=== PATIENT | female | born 1960 | race Caucasian/White ===

== ENCOUNTER 2018-12-03 14:53 | Emergency (ER) | payer BC ==
[~2018-12-03] VITALS: Ht 157.5 cm; Wt 57.6 kg
[2018-12-03 14:54] VITALS: BP 119/80; PULSE 108; RESP 20; Ht 157.5 cm; Wt 57.6 kg
--- NOTE | 2018-12-03 15:20 | ERD ---
ER Documentation Chief Complaint Chief Complaint BACK PAIN RADIATING TO HEAD, SHOULDERS AND LOWER BACK HPI 58-year-old female, with history of chronic back pain, presents to the emergency department, complaining of acute exacerbation upper back pain radiating to the head and shoulders. The pain is described as sharp, constant, 6/10. Patient denies fever, no chills, no distal weakness, numbness or tingling. ROS All systems reviewed and are negative except as per history of present illness. Medications Home Meds Active Scripts Lorazepam* (Ativan*) 0.5 Mg Tablet, 0.5 MG PO QHS PRN for MUSCLE SPASMS, #10 TAB Prov:EDGARD LÓPEZ MD 12/03/18 Hydrocodone/Acetaminophen ([place] 5-325 Tablet) 1 Each Tablet, 1 TAB PO BID PRN for PAIN, #10 TAB Prov:EDGARD LÓPEZ MD 12/03/18 Allergies Allergies: Coded Allergies: sulfamethoxazole (Verified Allergy, Intermediate, RASH, 12/03/18) trimethoprim (Verified Allergy, Intermediate, RASH, 12/03/18) PMhx/Soc Chronic back pain Medical and Surgical Hx: pt denies Surgical Hx Smoking Status: Never smoker FmHx Family History: No diabetes, No coronary disease Physical Exam Vitals Vital Signs Date Temp Pulse Resp B/P (MAP) Pulse Ox O2 O2 Flow FiO2 Time Delivery Rate 12/03/18 99.4 108 20 119/80 97 14:54 (93) Physical Exam Patient is in no acute distress, vital signs stable. Alert and fully oriented. EYES: PERRLA, EOMI, Sclera and conjunctiva appear normal. EARS: Canals clear, tympanic membranes WNL THROAT: Normal oropharynx. NECK: Supple, No lymphadenopathy. Full ROM without pain or tenderness. HEART: RRR, no rubs, murmurs, clicks or gallops. LUNGS: Clear to auscultation. ABDOMEN: Soft, non-tender without masses or hepatosplenomegaly. EXTREMITIES: No edema bilaterally. BACK: Normal inspection, no bruises, no rashes, no deformity, decreased range of motion for lateral rotation and flexion. No vertebral tenderness, bilateral upper muscle spasm. NEURO: Cranial nerves grossly intact, no motor or sensory deficit Results 24 hrs Laboratory Tests Test 12/03/18 16:06 Urine Color YELLOW Urine Clarity CLEAR Urine pH 6.0 Urine Specific [place] 1.021 Urine Ketones TRACE mg/dL Urine Nitrite NEGATIVE mg/dL Urine Bilirubin NEGATIVE mg/dL Urine Urobilinogen NEGATIVE mg/dL Urine Leukocyte Esterase NEGATIVE Lay/ul Urine Hemoglobin NEGATIVE mg/dL Urine Glucose NEGATIVE mg/dL Urine Total Protein NEGATIVE mg/dl Current Medications Medications Dose Sig/Marcin Start Time Status Last (Trade) Ordered Route PRN Stop Time Admin Dose Reason Admin Ketorolac 15 mg ONCE STAT 12/03/18 DC 12/03/18 Tromethamine IM 15:43 16:05 (Toradol) 12/03/18 15:45 Procedures/MDM At the time of discharge, patient nontoxic, ambulating, vital signs stable, no gross neurologic deficit. differential diagnosis include but not limited to: lumbar sprain/strain, sciatica, herniated disk, UTI less likely pyelo, kidney stone. Neurovascular exam grossly intact. no clinical findings suggestive of acute infectious process, no acute deformity, no edema, no rashes. Physical examination and clinical presentation consistent most likely with acute on chronic back pain. Results and clinical impression discussed with the patient who agrees with management. The patient is stable to be treated outpatient and will be discharged home with recommendations and close monitoring The patient was informed that the evaluation in the emergency department has been done to rule out an acute emergency, therefore, chronic conditions like malignancy or autoimmune diseases have not been evaluated; therefore, the patient was instructed to follow up with the primary care provider in the next 48h. If symptoms persist, worsen or new symptoms develop, then patient should return to the ED immediately. Instructions explained and given to patient with acknowledgment and demonstrated understanding. Disclaimer: Inadvertent spelling and grammatical errors are likely due to EHR/dictation software use and do not reflect on the overall quality of patient care. Also, please note that the electronic time recorded on this note does not necessarily reflect the actual time of the patient encounter. Departure Diagnosis: Primary Impression: Chronic back pain Condition: Stable Patient Instructions: Back Pain (Acute Or Chronic) Additional Instructions: Thank you very much for allowing us to participate in your care. Your health and safety is our top priority at [facility]. Call your primary care doctor TOMORROW for an appointment during the next 2-4 days and bring all the information and medications prescribed. Have prescriptions filled and follow precisely the directions on the label. If the symptoms get worse and your provider is unavailable, return to the Emergency Department immediately. EDGARD LÓPEZ MD Dec 03, 2018 15:20
[2018-12-03] MEDS ORDERED: KETOROLAC 15 MG INJ IM STA (15:43)
[2018-12-03] MEDS ORDERED: HYDR-4011 PO (16:36)
[2018-12-03] MEDS ORDERED: LORA-441 PO (16:36)
== END 2018-12-03 16:49 | disposition home or self-care (01) ==
LOC: FTE 14:53
DX: M54.5 Low back pain (principal)
CPT/HCPCS: 81003; 96372; J1885; Z7502

== ENCOUNTER 2019-03-05 14:18 | Emergency (ER) | payer BC ==
[~2019-03-05] VITALS: Ht 157.5 cm; Wt 55.8 kg
[~2019-03-05 14:18] MED LIST: HYDR-4011 PO; LORA-441 PO
[2019-03-05 14:30] VITALS: Ht 157.5 cm; Wt 55.8 kg
[2019-03-05] MEDS ORDERED: morphine 4 MG/ML VIAL IV STA (15:16)
--- NOTE | 2019-03-05 17:32 | ERD ---
ER Documentation Chief Complaint Chief Complaint BILATERAL LEG PAIN. NO SWELLING/REDNESS HPI 58-year-old female presented to ED for low back pain numbness tingling in her lower extremities and urinary incontinence x4 days. Patient states that back in November she was diagnosed with spinal stenosis. Patient has been seeing a neurologist and plans to have surgery. Patient is presenting to the ED because symptoms worsened at this week. Patient states that before she did not have urinary symptoms or numbness tingling in her lower extremities. Patient is able to ambulate but states it is painful. Patient denies any allergies to medications. Patient states the pain is a 10 out of 10 and has not been medication since early this morning. ROS All systems reviewed and are negative except as per history of present illness. Medications Home Meds Active Scripts Cephalexin* (Keflex*) 500 Mg Capsule, 500 MG PO TID for 5 Days, CAP Prov:MARILUZ FISCHER PA-C 03/05/19 Methylprednisolone* (Medrol* DOSE PACK) 4 Mg/Dose-Pack Tab.ds.pk, 4 MG PO . DIRECTED for 7 Days, PACKET Prov:TRINA ALLEN PA-C 03/05/19 Hydrocodone/Acetaminophen (Lind[place] 5-325 Tablet) 1 Each Tablet, 1 TAB PO Q6H PRN for PAIN, #7 TAB Prov:TRINA ALLEN PA-C 03/05/19 Lorazepam* (Ativan*) 0.5 Mg Tablet, 0.5 MG PO QHS PRN for MUSCLE SPASMS, #10 TAB Prov:EDGARD LÓPEZ MD 12/03/18 Hydrocodone/Acetaminophen (Linden 5-325 Tablet) 1 Each Tablet, 1 TAB PO BID PRN for PAIN, #10 TAB Prov:EDGARD LÓPEZ MD 12/03/18 Allergies Allergies: Coded Allergies: sulfamethoxazole (Verified Allergy, Intermediate, RASH, 12/03/18) trimethoprim (Verified Allergy, Intermediate, RASH, 12/03/18) PMhx/Soc History of Surgery: Yes (TA) Anesthesia Reaction: No Hx Miscellaneous Medical Probl: Yes (chronic back pain) Hx Alcohol Use: No Hx Substance Use: No Hx Tobacco Use: No Smoking Status: Never smoker FmHx Family History: No diabetes, No coronary disease, No other Physical Exam Vitals Vital Signs Date Temp Pulse Resp B/P (MAP) Pulse Ox O2 O2 Flow FiO2 Time Delivery Rate 03/06/19 97.8 61 17 130/81 98 Room Air 00:25 (97) 03/05/19 97.7 91 20 148/81 98 14:30 (103) Physical Exam Const: Moderate distress Neck: Full range of motion. No meningismus. Resp: Clear to auscultation bilaterally Cardio: Regular rate and rhythm, no murmurs Abd: Soft, non tender, non distended. Normal bowel sounds Skin: No petechiae or rashes Back: Pain and tenderness to palpation in the lumbar region Ext: No cyanosis, or edema, patient has decreased sensation anterior aspect the lower extremities, patient has lack of range of motion lower extremities, patient has good pedal pulses bilateral lower extremities. Result Diagram: 03/05/19 1533 03/05/19 1533 Results 24 hrs Laboratory Tests Test 03/05/19 15:33 White Blood Count 7.6 10^3/ul Red Blood Count 4.66 10^6/ul Hemoglobin 13.5 g/dl Hematocrit 40.1 % Mean Corpuscular Volume 86.1 fl Mean Corpuscular Hemoglobin 29.0 pg Mean Corpuscular Hemoglobin Concent 33.7 g/dl Red Cell Distribution Width 12.3 % Platelet Count 307 10^3/UL Mean Platelet Volume 10.3 fl Immature Granulocytes % 0.300 % Neutrophils % 61.2 % Lymphocytes % 32.1 % Monocytes % 5.0 % Eosinophils % 0.9 % Basophils % 0.5 % Nucleated Red Blood Cells % 0.0 /100WBC Immature Granulocytes # 0.020 10^3/ul Neutrophils # 4.7 10^3/ul Lymphocytes # 2.5 10^3/ul Monocytes # 0.4 10^3/ul Eosinophils # 0.1 10^3/ul Basophils # 0.0 10^3/ul Nucleated Red Blood Cells # 0.0 10^3/ul Urine Color YELLOW Urine Clarity SLIGHTLY CLOUDY Urine pH 8.0 Urine Specific [place] 1.017 Urine Ketones TRACE mg/dL Urine Nitrite NEGATIVE mg/dL Urine Bilirubin NEGATIVE mg/dL Urine Urobilinogen NEGATIVE mg/dL Urine Leukocyte Esterase 1+ Lay/ul Urine Microscopic RBC 1 /HPF Urine Microscopic WBC 13 /HPF Urine Squamous Epithelial Cells FEW /HPF Urine Bacteria FEW /HPF Urine Mucus FEW /HPF Urine Hemoglobin NEGATIVE mg/dL Urine Glucose NEGATIVE mg/dL Urine Total Protein NEGATIVE mg/dl Sodium Level 143 mmol/L Potassium Level 4.0 mmol/L Chloride Level 105 mmol/L Carbon Dioxide Level 29 mmol/L Anion Gap 9 Blood Urea Nitrogen 14 mg/dl Creatinine 0.72 mg/dl Est Glomerular Filtrat Rate mL/min > 60 mL/min Glucose Level 121 mg/dl Calcium Level 10.1 mg/dl Current Medications Medications Dose Sig/Marcin Start Time Status Last (Trade) Ordered Route PRN Stop Time Admin Dose Reason Admin Morphine 4 mg ONCE STAT 03/05/19 DC 03/05/19 Sulfate IV 15:16 15:51 (morphine) 03/05/19 15:19 Procedures/MDM ED course: The patient was stable throughout the ED course. The patient and/or family informed of laboratory and diagnostic imaging results throughout the ED course. Diagnostic imaging: Read by radiologist mariluz Valdovinos, Physicia PROCEDURE: MRI lumbar spine CLINICAL INDICATION: Severe low back pain TECHNIQUE: Multiplanar, multisequence MRI of the lumbar spine was performed without and with IV contrast. CONTRAST: 10 mL Prohance IV COMPARISON: None FINDINGS: Alignment: Unremarkable. Marrow: Prominent Schmorl's node seen at the L1 inferior endplate with mild surrounding fibrovascular degenerative signal changes. Background bone marrow signal is heterogeneous. Mild edema and enhancement is seen to the L3-L4 facet joints bilaterally, likely degenerative. Conus: The conus terminates normally at the L1-L2 level. The distal spinal cord is unremarkable. No abnormal enhancement. T11-T12: Mild diffuse disc bulge. No spinal canal or foraminal narrowing. T12 - L1: Mild diffuse disc bulge. No spinal canal or foraminal narrowing. L1 - L2: Diffuse disc bulge. No spinal canal or foraminal narrowing. L2 - L3: Mild diffuse disc bulge. No spinal canal or foraminal narrowing. L3 - L4: Diffuse disc bulge with ligamentum flavum redundancy and bilateral facet arthrosis. Prominent dorsal epidural fat noted. There is narrowing of the lateral recesses, left greater than right. No spinal canal narrowing. Mild bilateral foraminal narrowing. L4 - L5: Diffuse disc bulge with a small superimposed central disc protrusion. Mild facet arthrosis. No spinal canal narrowing. Moderate bilateral foraminal narrowing. L5 - S1: Diffuse disc bulge with a superimposed central disc extrusion, 3 mm inferior migration. There is contact of the descending right S1 nerve root in the lateral recess. No spinal canal narrowing. No foraminal narrowing. Paraspinal soft tissues: Unremarkable IMPRESSION: Multilevel degenerative changes of the lumbar spine. There is moderate foraminal narrowing bilaterally at the L4-5 level. Small disc extrusion at the L5-S1 level contacts the descending right S1 nerve root in the lateral recess. Medications given in ER: IV morphine Patient tolerated medication well with no adverse reactions. Patient reported improvement in pain. Medical decision makin-year-old female presenting to the ED for numbness tingling extending into the anterior aspect of her lower extremity and urinary incontinence x4 days. Patient states she has a history of spinal stenosis and was diagnosed back in November of this year. Patient is under the care of a neurosurgeon who still has not scheduled the surgery for her. Patient has been receiving physical therapy but states that has not been helping. Patient's lower lumbar MRI ruled out cauda equine syndrome and spinal abscess. The patient states she has been having urinary incontinence, but was able to provide a urine sample without difficulty. The patients WBC showed no signs of leukocytosis. The patient UA indicated the patient has a UTI. The patient will be treated out patient with Keflex. The patient was reevaluated for pain 4 hours after the first dose of Morphine was given. Patient states she is pain free at the moment and is resting comfortably. At this time I have low suspicion for cauda equine syndrome, spinal fractures, epidural abscess, spinal metastases, osteomyelitis, aortic dissection, ruptured or leaking AA. The lab and imaging results were discussed with the patient. I advised the patient she will be given prescription for Motrin,Linden and Medrol dose pack for relief of symptoms. Patient was advised to follow up with her PCP and her neurosurgeon CHINO regarding this visit. Patient was advised that if symptoms worsen she should return to the ER immediately. Patient is an agreement to the treatment plan and all questions were answered upon discharge. Prescription for home: Medrol Dose pack Keflex Motrin Linden I have discussed with the patient proper use and common side effects to expert with the medication . I advised the patient/family to speak with the pharmacist dispensing the medication to be advised of any potential drug interactions with other medication or supplements they may be taking. Discharge: At this time, patient is stable for discharge and outpatient management. I have instructed the patient to follow-up with his\her primary care physician in 1 to 2 days. I have discussed with the patient the possibility of needing to see a specialist for further work-up and imaging studies if symptoms persist. I have instructed the patient to promptly return to the ER for any new or worsening symptoms including increased pain, fever, nausea, vomiting, weakness or LOC. The patient and\or family expressed understanding of and agreement with this plan. All questions were answered. Home care instructions were provided. Disclaimer: Inadvertent spelling and grammatical errors are likely due to EHR\dictation software use and do not reflect on the overall quality of patient care. Also, please note that the electronic time recorded on the note does not necessarily reflect the actual time of the patient encounter. MRI results : Multilevel degenerative changes of the lumbar spine. There is moderate foraminal narrowing bilaterally at the L4-5 level. Small disc extrusion at the L5-S1 level contacts the descending right S1 nerve root in the lateral recess. Departure Diagnosis: Primary Impression: Spinal stenosis Spinal region: lumbar Neurogenic claudication status: unspecified Qualified Codes: M48.061 - Spinal stenosis, lumbar region without neurogenic claudication Additional Impressions: Urinary incontinence Urinary Incontinence type: unspecified incontinence Qualified Codes: R32 - Unspecified urinary incontinence Bilateral leg paresthesia Condition: TRINA Berg PA-C Mar 05, 2019 17:31 MARILUZ FISCHER PA-C Mar 06, 2019 00:01
[2019-03-05] MEDS ORDERED: MED4DP PO (18:52)
[2019-03-05] MEDS ORDERED: HYDR-4011 PO (18:52)
[2019-03-05] MEDS ORDERED: CEPH-443 PO (22:32)
[2019-03-06 00:25] VITALS: BP 130/81; PULSE 61; RESP 17
== END 2019-03-06 00:18 | disposition home or self-care (01) ==
LOC: FTE 14:18
DX: M48.061 Spinal stenosis, lumbar region without neurogenic claudication (principal); R32 Unspecified urinary incontinence; R20.2 Paresthesia of skin
CPT/HCPCS: 72158; 80048; 81001; 85025; 96374; J2270; Z7502

== ENCOUNTER 2019-03-29 10:58 | Emergency (ER) | payer BC ==
[~2019-03-29] VITALS: Ht 152.4 cm; Wt 55.3 kg
[~2019-03-29 10:58] MED LIST changes: +ACET500C5 PO; +CEPH-443 PO; +IBUP-1542 PO; +MED4DP PO
[2019-03-29 11:00] VITALS: Ht 152.4 cm; Wt 55.3 kg
--- OUTSIDE RECORDS SUMMARY | 2019-03-29 11:24 | XMS REPORT | Encounter Summary ---
Demographics [phone] ion n X1 weeks pt was taking norco and ibuprofen but not helping. Assessment and Plan ing please go to emergency room to be evaluated by neurosurgery due to red flag symptoms Patient educational handouts: No information available. Plan of Care Patient Instructions vnjvq6Jx Uiwdwtg1u kfhqMpmieus9m l rosurgery rral Medications Tuvxsrq6Kt Bulaoyu0q Vbhwlag7d Zgyklce6n [place] 3 times a day by oral route. route. Medications Administered None recorded. Vitals Kqwmqov1Kc Bpmhhhi9e d Pressure Nchvboe2g Lab Results None recorded. Allergies Ahsahlp5Fh Nuospck9Yv Idhleku7Uc Stflpde7Zh Jmbzehc7U Rdarykl2P Shona na4d zkhwmr3c Cxxmfjj2q cdekt6t na4d Problems Xzbkjya4Qu Zxvoypn4Ai dana4d tatusVerdana4 Onset SourceVerdana Pxetodx6i d DateVerdana4 4d d Procedures Rpznqoa4Ak Cnrvvvo8r Thpuhsp6i Xpodfvv2q Xrinitp4a stacey Vaccine List None recorded. Social History g Family History Umstbuu9Zc Wdyddgk8Uv roblem Onset Age of Age Notes Nnlgkev3s Ozamzsz4x Mevyahd1p Nnjifpf4n Jvmklpy7y rmation) Functional Status Unknown. Past Encounters tom Alonzo, [employer] BACK [employer]ER: [address] [facility], [place] [address], Ph. History of Present Illness Note:<p>58 year old reporting excruciating 10/10 lower back pain, radiating to her legs, x1 year, got an MRI in November 2018- unsure if she was told she had compression syndrome. states she has been doing physical therapy, taking norco and ibuprofen with very minimal relief of symptoms. reporting saddle anesthesia, progessive difficulty walking, and urinary incontinence for the past week. also reporting numbness, tingling, and lower extremities turning blue. denies any other symptoms.</p> Review of Systems nt Care Trauma ROS o chest tightness, normal respiration in: mptoms: Physical Exam skeletal and Joint Exam ete with age, no tenderness, no spasms. Thoracic Spine reduced ROM, tenderness on palpation. Lumbar / Lumbosacral Spine tenderness on palpation, reduced ROM. Soft Tissue/Bursa: tender point onon paralumbar region, tender point on upper/outer buttocks
--- OUTSIDE RECORDS SUMMARY | 2019-03-29 11:24 | XMS REPORT ---
Demographics [phone] ion Allergies Verdana4 Verdana4 Verdana4 Verdana4 Verdana4 Verdana Verdana Bd wdorcy8g onVerdana tyVerdana usVerdan tVerdana dana4d 4d 4d a4d 4d Medications Ikbjfiu4Az Onhlsdh8Su Raygknr6Gv Dxlxsrn4Kf Iyrisaj4T Xadyosx6V Ifpdyvk1z Wecfsoc5q Nsdttbj7v Aajrihf6o ntin 3 times a day by oral route. available tablet Take 1 tablet 3 times a day by oral route. available Problems Lsgehuq8Oe Ygjqzdj7Go dana4d tatusVerdana4 Onset SourceVerdana Gtynjfe9d d DateVerdana4 4d d Intervertebral Disc by Injection Procedures Mfjyogg0Eu Cesrdgi3x Hbkrsvj2m Ukiotzh2h Kxrsbuw4v stacey Lab Results None recorded. Past Encounters tom Alonzo, CERTIFIED RESIDENTIAL MEDICATION AIDE: [address] [facility], [place] [address], Ph. Social History Vaccine List None recorded. Plan of Care Patient Instructions gpwyz6Yn Ztbaxys8v vrsfDtuwbmu5v l Vitals Axefggh8Al Gwlwhkg2t d Pressure Oqgplvf6n
[2019-03-29] MEDS ORDERED: ONDANSETRON (ODT) 4 MG TAB ODT STA (11:26)
[2019-03-29] MEDS ORDERED: HYDROCODONE/APAP (10/325) TAB PO ONE (11:30)
[2019-03-29 12:48] VITALS: BP 126/83; PULSE 66; RESP 18
--- NOTE | 2019-03-29 16:38 | ERD ---
ER Documentation Chief Complaint Chief Complaint headache x 3 days , vomiting x 1 day HPI Patient's 58-year-old female presented to ED for unilateral headache on the right side x3 days. Patient states that she is vomited one time. Patient states this is never happened to her before. Patient states the pain is a 10 out of 10. Patient states her only past medical history is spinal stenosis which she takes Christoval for. Patient's vitals are all stable limit. Patient states that she has not taken anything for this headache is wants to get checked out. ROS All systems reviewed and are negative except as per history of present illness. Medications Home Meds Active Scripts Ibuprofen* (Motrin*) 600 Mg Tab, 600 MG PO Q6, #30 TAB Prov:TRINA ALLEN PA-C 03/29/19 Acetaminophen* (Tylophen*) 500 Mg Capsule, 1 CAP PO Q6H PRN for PAIN AND OR ELEVATED TEMP, #20 CAP Prov:TRINA ALLEN PA-C 03/29/19 Cephalexin* (Keflex*) 500 Mg Capsule, 500 MG PO TID for 5 Days, CAP Prov:MARILUZ FISCHER PA-C 03/05/19 Methylprednisolone* (Medrol* DOSE PACK) 4 Mg/Dose-Pack Tab.ds.pk, 4 MG PO . DIRECTED for 7 Days, PACKET Prov:TRINA ALLEN PA-C 03/05/19 Hydrocodone/Acetaminophen (Christoval 5-325 Tablet) 1 Each Tablet, 1 TAB PO Q6H PRN for PAIN, #7 TAB Prov:TRINA ALLEN PA-C 03/05/19 Lorazepam* (Ativan*) 0.5 Mg Tablet, 0.5 MG PO QHS PRN for MUSCLE SPASMS, #10 TAB Prov:EDGARD LÓPEZ MD 12/03/18 Hydrocodone/Acetaminophen (Christoval 5-325 Tablet) 1 Each Tablet, 1 TAB PO BID PRN for PAIN, #10 TAB Prov:EDGARD LÓPEZ MD 12/03/18 Allergies Allergies: Coded Allergies: sulfamethoxazole (Verified Allergy, Intermediate, RASH, 12/03/18) trimethoprim (Verified Allergy, Intermediate, RASH, 12/03/18) PMhx/Soc History of Surgery: Yes (TA) Anesthesia Reaction: No Hx Neurological Disorder: No Hx Respiratory Disorders: No Hx Cardiac Disorders: No Hx Psychiatric Problems: No Hx Miscellaneous Medical Probl: Yes (chronic back pain) Hx Alcohol Use: No Hx Substance Use: No Hx Tobacco Use: No Smoking Status: Never smoker FmHx Family History: No diabetes, No coronary disease, No other Physical Exam Vitals Vital Signs Date Temp Pulse Resp B/P (MAP) Pulse Ox O2 O2 Flow FiO2 Time Delivery Rate 03/29/19 98.2 66 18 126/83 98 Room Air 12:48 (97) 03/29/19 64 18 138/84 98 Room Air 12:25 (102) 03/29/19 98.6 81 18 165/74 99 11:00 (104) Physical Exam GENERAL: Moderate distress HEENT: Atraumatic. Conjunctivae are pink. Pupils equal, round, and reactive to light. There is no scleral icterus. Tympanic membranes clear bilaterally. Oropharynx clear. No nystagmus or photophobia. NECK: C-spine is soft and supple. There is no meningismus. There is no cervical lymphadenopathy. CHEST: Clear to auscultation bilaterally. There are no rales, wheezes or rhonchi. HEART: Regular rate and rhythm. No murmurs, clicks, rubs or gallops. ABDOMEN:Soft, nontender and nondistended. Good bowel sounds. No rebound or guarding. No gross peritonitis. No gross organomegaly or masses. No Perez sign or McBurney point tenderness. BACK: No midline or flank tenderness. EXTREMITIES: Equal pulses bilaterally. There is no peripheral clubbing, cyanosis or edema. No focal swelling or erythema. Full range of motion. Grossly neurovascularly intact. NEUROLOGIC: Alert and oriented. Cranial nerves II through VII intact. Motor strength in all 4 extremities with 5 out of 5 strength. Sensation grossly intact. Normal speech and gait. Results 24 hrs Current Medications Medications Dose Sig/Marcin Start Time Status Last (Trade) Ordered Route PRN Stop Time Admin Dose Reason Admin 1 tab ONCE ONCE 03/29/19 DC 03/29/19 Acetaminophen PO 11:30 11:37 / 03/29/19 11:31 Hydrocodone Bitart (Christoval (10/325)) Ondansetron 4 mg ONCE STAT 03/29/19 DC 03/29/19 HCl (Zofran ODT 11:26 11:37 Odt) 03/29/19 11:27 Procedures/MDM ED course: The patient was stable throughout the ED course. The patient and/or family informed of laboratory and diagnostic imaging results throughout the ED course. Medications given in ER: Christoval Patient tolerated medication well with no adverse reactions. Patient reported improvement in pain. Medical decision making: Is a 58-year-old female presented to ED for headache x3 days and vomiting. Patient states she only vomited one time which was today. Patient states that she is never had this happen to her before. Patient states her only past medical history is spinal stenosis. Physical exam was unremarkable patient's neuro exam was unremarkable. Patient had no focal neuro deficits. Patient denies any blurry vision or visual disturbances. Patient has no slurred speech. Patient is afebrile vitals within normal limits. Patient was given Christoval while in the ED and upon reevaluation the patient appears to be doing much better states that her headache has resided. The patient's blood pressure has also dropped to a more reasonable range than her initial intake. Most likely her high blood pressure was due to the pain she was in. Patient has no neck stiffness. At this time I have low suspicion for TIA, CVA, meningitis, brain abscess, encephalitis, acute coronary glaucoma. Advised patient she needs follow-up with her primary care provider in 1 to 2 days regarding this visit. Advised patient symptoms worsen she is to return to ER immediately. Patient had no further questions upon discharge and is in agreement treatment plan Prescription for home: Acetaminophen Motrin I have discussed with the patient proper use and common side effects to expert with the medication . I advised the patient/family to speak with the pharmacist dispensing the medication to be advised of any potential drug interactions with other medication or supplements they may be taking. Discharge: At this time, patient is stable for discharge and outpatient management. I have instructed the patient to follow-up with his\her primary care physician in 1 to 2 days. I have discussed with the patient the possibility of needing to see a specialist for further work-up and imaging studies if symptoms persist. I have instructed the patient to promptly return to the ER for any new or worsening symptoms including increased pain, fever, nausea, vomiting, weakness or LOC. The patient and\or family expressed understanding of and agreement with this plan. All questions were answered. Home care instructions were provided. Disclaimer: Inadvertent spelling and grammatical errors are likely due to EHR\dictation software use and do not reflect on the overall quality of patient care. Also, please note that the electronic time recorded on the note does not necessarily reflect the actual time of the patient encounter. Departure Diagnosis: Primary Impression: Headache Headache type: unspecified Headache chronicity pattern: unspecified pattern Intractability: not intractable Qualified Codes: R51 - Headache Condition: Stable Patient Instructions: Self-Care for Headaches Referrals: [facility] YOU HAVE RECEIVED A MEDICAL SCREENING EXAM AND THE RESULTS INDICATE THAT YOU DO NOT HAVE A CONDITION THAT REQUIRES URGENT TREATMENT IN THE EMERGENCY DEPARTMENT. FURTHER EVALUATION AND TREATMENT OF YOUR CONDITION CAN WAIT UNTIL YOU ARE SEEN IN YOUR DOCTORS OFFICE WITHIN THE NEXT 1-2 DAYS. IT IS YOUR RESPONSIBILITY TO MAKE AN APPOINTMENT FOR FOLOW-UP CARE. IF YOU HAVE A PRIMARY DOCTOR --you should call your primary doctor and schedule an appointment IF YOU DO NOT HAVE A PRIMARY DOCTOR YOU CAN CALL OUR PHYSICIAN REFERRAL HOTLINE AT IF YOU CAN NOT AFFORD TO SEE A PHYSICIAN YOU CAN CHOSE FROM THE FOLLOWING [facility] [address] [employer] [address] [facility] [address] [employer] [facility] [address] [facility] [address] [facility] [address] [facility]. [facility] [address] [facility]. [facility] YOU HAVE RECEIVED A MEDICAL SCREENING EXAM AND THE RESULTS INDICATE THAT YOU DO NOT HAVE A CONDITION THAT REQUIRES URGENT TREATMENT IN THE EMERGENCY DEPARTMENT. FURTHER EVALUATION AND TREATMENT OF YOUR CONDITION CAN WAIT UNTIL YOU ARE SEEN IN YOUR DOCTORS OFFICE WITHIN THE NEXT 1-2 DAYS. IT IS YOUR RESPONSIBILITY TO MAKE AN APPOINTMENT FOR FOLOW-UP CARE. IF YOU HAVE A PRIMARY DOCTOR --you should call your primary doctor and schedule and appointment IF YOU DO NOT HAVE A PRIMARY DOCTOR YOU CAN CALL OUR PHYSICIAN REFERRAL HOTLINE AT . IF YOU CAN NOT AFFORD TO SEE A PHYSICIAN YOU CAN CHOSE FROM THE FOLLOWING [facility] INSTITUTIONS: [facility] [address] [place] [address] [facility] [address] [place] [address] [facility] [address] [place] [address] Additional Instructions: Call your primary care doctor TOMORROW for an appointment during the next 1-2 days.See the doctor sooner or return here if your condition worsens before your appointment time. TRINA ALLEN PA-C Mar 29, 2019 16:38
== END 2019-03-29 12:49 | disposition home or self-care (01) ==
LOC: FTE 10:58
DX: R51 Headache (principal); R11.10 Vomiting, unspecified
CPT/HCPCS: Z7502; Z7610; 99283